=== PATIENT | male | born 1965 | race African-American/Black ===

== ENCOUNTER 2020-10-12 09:26 | Emergency (ER) | payer OTHER ==
[2020-10-12] MEDS ORDERED: ceFAZolin 1 GM Vial IM ONE (10:30)
== END 2020-10-12 11:15 | disposition home or self-care (01) ==
LOC: VM.ED 09:26
DX: S67.193A Crushing injury of left middle finger, initial encounter (principal); W23.0XXA Caught, crushed, jammed, or pinched between moving objects, initial encounter; Y99.0 Civilian activity done for income or pay
CPT/HCPCS: 73140-F2; 96372; 99283-25; J0690

== ENCOUNTER 2022-06-28 12:33 | Day surgery (SDC) | payer OTHER ==
[~2022-06-28 12:33] MED LIST: Lactated Ringers 1,000 ML IV SCH
[2022-06-28] MEDS ORDERED: Propofol 200 MG/20 ML SDV ONE ×3 (14:46→15:43)
[2022-06-28] MEDS ORDERED: fentaNYL 100 MCG/2 ML SDV ONE (14:46)
== END 2022-06-28 17:20 | disposition home or self-care (01) ==
LOC: VM.SDS 12:33
PROVIDERS: ATTEND Family Medicine
DX: Q43.8 Other specified congenital malformations of intestine (principal); S80.912A Unspecified superficial injury of left knee, initial encounter; E55.9 Vitamin D deficiency, unspecified; M86.9 Osteomyelitis, unspecified; M25.511 Pain in right shoulder; M25.561 Pain in right knee; W19.XXXA Unspecified fall, initial encounter
CPT/HCPCS: 00811; J2704; J3010; J7120